=== PATIENT | female | born 1995 | race Caucasian/White ===

== ENCOUNTER 2016-12-23 00:10 | Emergency (ER) | payer OTHER ==
[2016-12-23 00:43] VITALS: BP 101/77
--- NOTE | 2016-12-23 01:58 | ER Document Report ---
ED General - General Mode of Arrival: Ambulatory Information source: Patient, Parent - Mother TRAVEL OUTSIDE OF THE [place] IN LAST 30 DAYS: No - HPI Onset: Other - Refer to HPI notes Similar symptoms previously: No Recently seen / treated by doctor: No - General Chief Complaint: Headache >24 hrs old Stated Complaint: HEAD PAIN/DIZZINESS Time Seen by Provider: 12/23/16 01:43 Notes: Patient is a 21-year-old female presenting to the emergency department for headache and lightheadedness which has been onset last couple days. Patient was dizzy at work today and was sent home early. Patient states that her headache came on gradually and is waxing and waning. Patient's pain is all over and in her forehead. Patient states that she took a naproxen. Patient also complains of some blurry vision in her right eye. Patient has a lack of appetite and has not been sleeping a lot. Patient states that she only ate a little bit of fruit today. Patient's mother states that the grandmother recently from a stroke and she believes her daughter is experiencing some anxiety and stress of the situation. Patient states that she has been working at [employer] and is concerned that she may have a stroke or other emergent conditions. Patient denies any history of headaches or family history of aneurysms. Patient did receive new glasses and contacts on Thursday. Patient's last menstrual period is 12/03/2016 and denies any chance of being . Patient has no known allergies. (KEMAL GRADY) - Related Data Allergies/Adverse Reactions: No Known Allergies Allergy (Verified 12/23/16 00:40) Past Medical History - General Information source: Patient, Parent - Social History Smoking Status: Never Smoker Cigarette use (# per day): No Chew tobacco use (# tins/day): No Smoking Education Provided: No Frequency of alcohol use: None Drug Abuse: None Family History: None Patient has suicidal ideation: No Patient has homicidal ideation: No EENT Medical History: Reports: Eyes - Wears glasses and contacts Surgical Hx: Negative Review of Systems - Review of Systems Constitutional: No symptoms reported EENT: No symptoms reported Cardiovascular: See HPI, Dizziness, Lightheaded Respiratory: No symptoms reported Gastrointestinal: No symptoms reported Genitourinary: No symptoms reported Female Genitourinary: No symptoms reported Musculoskeletal: No symptoms reported Skin: No symptoms reported Hematologic/Lymphatic: No symptoms reported Neurological/Psychological: See HPI, Headaches -: Yes All other systems reviewed and negative Physical Exam - Vital signs Interpretation: Normal - Vital signs Vitals: Temp Pulse Resp BP Pulse Ox 98.6 F 67 16 101/77 100 12/23/16 00:40 12/23/16 00:40 12/23/16 00:40 12/23/16 00:40 12/23/16 00:40 - Notes Notes: GENERAL: Alert, interacts well. No acute distress. HEAD: Normocephalic, atraumatic. EYES: Appear normal. Pupils equal, round, and reactive to light. ENT: Moist mucus membranes, tongue midline. NECK: Full range of motion. Supple. Trachea midline. LUNGS: Clear to auscultation bilaterally, no wheezes, rales, or rhonchi. No respiratory distress. HEART: Regular rate and rhythm. No murmurs, gallops, or rubs. ABDOMEN: Soft, non-tender. Non-distended. Normal bowel sounds. EXTREMITIES: Moves all 4 extremities spontaneously. Normal strength. No edema. NEUROLOGICAL: Alert and oriented x3. Normal speech. No focal neurological deficits. GSC 15. PSYCH: Patient is anxious at first but is more relaxed at the end of the exam. SKIN: Warm, dry, normal turgor. No rashes or lesions noted. (KEMAL GRADY) Course - Re-evaluation Re-evalutation: 12/23/16 02:00 Presents emerged from gradual onset of headache of several days' duration which is frontal in nature. Patient is very anxious and nervous and was at work and mom says she is an anxious person to begin with grandmother just of a stroke and she was very upset about it started reading on the Internet all sorts of bad things was worried she had high blood pressure and aneurysm she is well-appearing nontoxic no acute distress she describes a little bit of throbbing in the frontal region no blurred vision double vision history of trauma gradual onset not the worst headache of life not associated with vomiting neck pain or neurological deficit she is well-appearing nontoxic GCS of 15 after a long conversation with her and her mom and reassured her I do not feel that this was meningitis toxic or brain aneurysm or tumor. She feels significantly reassured as she and her friends at work started reading about all the differential diagnosis. She is reassured now does not want a CAT scan of her head does not want any medications that she can go and get some rest. She will follow primary care physician in 2-3 days and discussed reasons for ED return sooner (ANURADHA MIXON) - Vital Signs Vital signs: Temp Pulse Resp BP Pulse Ox 98.6 F 67 16 101/77 100 12/23/16 00:40 12/23/16 00:40 12/23/16 00:40 12/23/16 00:40 12/23/16 00:40 Discharge - Discharge Clinical Impression: Cephalgia Qualifiers: Headache type: unspecified Headache chronicity pattern: unspecified pattern Intractability: not intractable Qualified Code(s): R51 - Headache Condition: Stable Disposition: HOME, SELF-CARE Additional Instructions: Headache The physician does not feel that the headache you are experiencing has a serious underlying cause. Most headaches are due to emotional stress, with resultant muscle tension (tension headache). Occasionally, headaches are secondary to changes in the blood vessels of the scalp (vascular headache and migraine headache). Sometimes, a headache is the first symptom of another developing illness, such as a viral infection. You have no evidence of stroke, bleeding, meningitis, or other serious cause of your headache. The treatment of headaches varies with the severity and cause of the pain. Not all headaches need pain shots. In fact, there is evidence that using narcotics for headaches may make them worse in the long run. The physician will determine the therapy that's in your best interest. If you develop a fever, if the headache is different from any you've previously experienced, or if the headache progressively worsens, then call your physician at once or go to the emergency room. Follow-up with your primary care physician in 2-3 days return for increasing worsening or new symptoms Scribe Attestation: 12/23/16 02:00 I personally performed the services described in the documentation reviewed the documentation recorded by my scribe in my presence and it accurately and completely records my words and actions (ANURADHA MIXON) Scribe Documentation - Scribe Written by Leny:: Leny Holland, 12/23/2016 3:45 acting as scribe for :: Javan
== END 2016-12-23 02:10 | disposition home or self-care (01) ==
LOC: ER 00:10
DX: R51 Headache (principal); R42 Dizziness and giddiness; R63.0 Anorexia; F41.9 Anxiety disorder, unspecified; Z82.3 Family history of stroke
CPT/HCPCS: 99283